=== PATIENT | male | born 2000 | race Caucasian/White ===

== ENCOUNTER 2021-10-03 23:18 | Emergency (ER) | payer OTHER, SELFPAY ==
[2021-10-03 23:19] VITALS: BP 135/97; PULSE 108; RESP 16; TEMP 35.8; O2SAT 98; BMI 29.1
--- NOTE | 2021-10-03 23:22 | RAD_ITS ---
EXAM: XR RIGHT SHOULDER COMPLETE, 2 OR MORE VIEWS CLINICAL INDICATION: pain TECHNIQUE: Two or more views of the right shoulder. This report was created using [employer] report generation technology. COMPARISON: None. FINDINGS: BONES/JOINTS: Unremarkable. No acute fracture. No subluxation. Normal alignment. Preservation of the joint space. No sclerotic or destructive changes observed. SOFT TISSUES: Unremarkable. No soft tissue swelling or gas. No radiopaque foreign body. RAD/Shoulder min 2 Views IMPRESSION: Negative right shoulder x-rays. Electronically Signed: Raj Silveira MD at 23:49 EST Tel , Service support ,
--- NOTE | 2021-10-03 23:46 | EX.ED.UPPERE ---
HPI History of Present Illness Chief Complaint: Upper Extremity Injury Detail of Chief Complaint: Right shoulder pain Informant: patient Occured/Mechanism Mechanism/Context: Yes injury, Yes blunt trauma and Yes same level fall Onset/Context/Timing Onset: Hours Context: Sudden Onset Timing: Continuous Quality of Pain: - (Pain that he localizes to the right shoulder region) Location: Right shoulder region no specific area Current Severity: Mild Maximum Severity: Moderate Worsened by: Extension anteriorly Relieved by: Rest Associated Symptoms Associated Symptoms: Negative for Parasthesia, Weakness and Loss of Funtion Narrative Narrative: Patient is a 21-year-old [id number] male who presents because of injury to his right shoulder after fall. He landed on concrete. He denies paresthesia, anesthesia motors. Denies head trauma. Denies neck pain. He denies chest pain. No shortness of breath. Tetanus Immunization: 5-10 years Prior similar symptoms: No Recent Illness/Hospitalization: No PFSH PFSH Medical History no medical history Home Medications NK 10/03/21 [History Last Taken Unknown] Allergy/AdvReac Type Severity Reaction Status Date / Time No Known Allergies Allergy Verified 10/03/21 23:22 Surgical History no surgical history no surgical history Social History (Updated 10/03/21 @ 23:[address] Jose L Victoria MD) household members: family Smoking Status: Never smoker substance use type: does not use ROS ROS ED Constitutional Constitutional ED: Denies chills, fever(s), subjective, sweats or weight loss Eyes Eyes: Denies blurry vision, change in vision or diplopia ENT ENT ED: Denies ear pain, rhinorrhea or sore throat Cardiovascular Cardiovascular: Denies chest pain, palpitations or racing heartbeat Respiratory/Chest Respiratory/Chest: Denies cough, dyspnea, dyspnea on exertion or sputum Gastrointestinal Gastrointestinal: Denies abdominal pain Musculoskeletal Musculoskeletal: Denies back pain, myalgias or neck pain Integumentary Denies rash Hematologic/Lymphatic Hematologic/Lymphatic: Denies easy bleeding or easy bruising EXAM Physical Exam Const Vital Signs: 10/03/21 23:19 Temperature 96.5 F L Temperature Source Temporal Pulse Rate 108 H Respiratory Rate 16 Blood Pressure 135/97 H Blood Pressure Mean 109 Pulse Ox 98 Oxygen Delivery Method Room Air Positive well nourished and well developed General Appearance ED: well developed and NAD HEENT HEENT Narrative: Abrasion over the nose normocephalic and trauma Eyes PERRL and EOMs intact bilaterally Eyes Narrative: There is no subconjunctival hemorrhage noted. Neck full ROM and supple General: Negative for tenderness Chest Wall inspection of chest normal and palpation of chest normal Resp normal respiratory effort and clear to auscultation bilaterally Cardio regular rate, regular rhythm, S1 normal heart sound and no murmurs Neuro oriented x3 and CN's II-XII intact bilaterally Neuro Narrative: Axillary, median, radial and ulnar function intact. Sensorium / Orientation: alert Psych mental status grossly normal Skin Lesions: no lesions Rashes: no rashes Trauma: abrasion; Negative for no lacerations or abrasions MDM MDM MDM Narrative Medical decision making narrative: X-ray was obtained to evaluate for contusion versus fracture. Radiography Diagnostic Testing: view x-ray of the right shoulder reveals no fracture, subluxation or dislocation. The x-ray was interpreted by me at 2350. Discharge Plan Triage Chief Complaint: Upper Extremity Injury ED Provider: Jose L Victoria Dx/Rx/DC Orders Clinical Impression: Contusion of right shoulder, initial encounter Instructions: ED Shoulder Contusion Prescriptions: No Action NK RF: 0 Primary Care Provider: Care Physician,No Primary Referrals: Cristhian Arnold MD [STAFF PHYSICIAN] - 1 Week if not improving Care Physician,No Primary [Primary Care Provider] - Activity Restrictions/Additional Instructions: 1. Apply ice 6-8 times a day for the next 3 to 5 days 2. Take either 4 ibuprofen tablets every 8 hours or 2 Aleve tablets every 12 hours for the next 3 to 5 days. Disposition Disposition: Home, Self Care
== END 2021-10-04 00:07 | disposition home or self-care (01) ==
LOC: ED 10-04 00:05
PROVIDERS: Emergency Provider Emergency Medicine
DX: S40.011A Contusion of right shoulder, initial encounter (principal); W18.30XA Fall on same level, unspecified, initial encounter; Y93.9 Activity, unspecified; Y92.9 Unspecified place or not applicable; Y99.9 Unspecified external cause status
CPT/HCPCS: 73030; 99282